=== PATIENT | female | born 1950 | race Caucasian/White ===

== ENCOUNTER 2016-11-08 17:28 | Emergency (ER) | payer BC ==
[~2016-11-08] VITALS: Ht 165.1 cm; Wt 70.0 kg
[2016-11-08 17:32] VITALS: Ht 165.1 cm; Wt 70.0 kg
--- NOTE | 2016-11-08 17:48 | ERD ---
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 The patient was brought in by ambulance. The patient has left- sided back pain and left arm pain which started 30 minutes ago but resolved on its own after Tylenol. She took Tylenol at home. Her EKG was normal by paramedics and she was not given any medications in route. She does not want to stay in the emergency department. The pain was sharp in nature and lasted minutes and then went away and she is now pain-free. She does not remember the name of her primary doctor. ROS All systems reviewed and are negative except as per history of present illness. Medications Home Meds Reported Medications [None] No Conflict Check 09/05/13 Allergies Allergies: Coded Allergies: No Known Allergy (Unverified , 09/05/13) PMhx/Soc History of Surgery: No Anesthesia Reaction: No Hx Neurological Disorder: No Hx Respiratory Disorders: Yes (bronchitis ) Hx Cardiac Disorders: No Hx Psychiatric Problems: No Hx Miscellaneous Medical Probl: No Hx Alcohol Use: No Hx Substance Use: No Hx Tobacco Use: No FmHx Family History: No coronary disease Physical Exam Vitals Vital Signs Date Time Temp Pulse Resp B/P Pulse Ox O2 Delivery O2 Flow Rate FiO2 11/08/16 17:32 98.2 79 20 150/69 100 Physical Exam Const: No acute distress Head: Atraumatic Eyes: Normal Conjunctiva ENT: Normal External Ears, Nose and Mouth. Neck: Full range of motion..~ No meningismus. Resp: Clear to auscultation bilaterally Cardio: Regular rate and rhythm, no murmurs Abd: Soft, non tender, non distended. Normal bowel sounds Skin: No petechiae or rashes Back: No midline or flank tenderness Ext: No cyanosis, or edema Neur: Awake and alert Psych: Normal Mood and Affect Procedures/MDM EKG read by me: Rate/Rhythm: Regular rate and rhythm at a rate of 77 Intervals: Normal Impression: No evidence of ischemia or arrhythmia Refused chest x-ray. Patient is a 66-year-old female with no cardiac risk factors who presents with chest pain. Her chest pain has resolved quickly. It was sharp in nature. Initial EKG is normal. She refused a chest x-ray and therefore I cannot rule out pneumothorax or pneumonia. I doubt acute coronary syndrome, pulmonary embolism, or aortic dissection. The patient will be discharged but will need to follow-up closely with her primary doctor within 24-48 hours. She can return for any worsening symptoms. We did discuss the possibility of admission to rule out acute coronary syndrome but she is adamantly refusing admission at this time. Departure Diagnosis: Primary Impression: Chest pain Chest pain type: unspecified Qualified Code: R07.9 - Chest pain, unspecified type Condition: Fair Patient Instructions: Chest Pain, Uncertain Cause Referrals: Your doctor Additional Instructions: Call your primary care doctor TOMORROW for an appointment during the next 1-2 days.See the doctor sooner or return here if your condition worsens before your appointment time. NICOLÁS GAR MD Nov 08, 2016 17:48
== END 2016-11-08 18:06 | disposition home or self-care (01) ==
LOC: E/R 17:28
DX: R07.9 Chest pain, unspecified (principal)
CPT/HCPCS: 93005